=== PATIENT | female | born 1975 | race Caucasian/White ===

== ENCOUNTER → 2019-12-24 10:00 | Outpatient (CLI) | payer BC, SELFPAY ==
--- NOTE | ~2019-12-24 | DEXA_ITS ---
Bone Density Report Name: Sissy Maya Age: 44 Sex: Female Ethnicity: White Date of : 1975 Indication: postmenopausal; cancer; asthma or emphysema; hysterectomy; Referring Provider: PHYSICIAN NOT ON STAFF Study: Bone densitometry was performed. Exam Date: December 24, 2019 Accession number: [id number] Bone Density: Region BMD T-score Z-score Classification AP Spine (L1-L4) 1.019 -0.3 0.1 Normal Femoral Neck (Left) 0.830 -0.2 0.2 Normal Total Hip (Left) 0.892 -0.4 -0.1 Normal Femoral Neck (Right) 0.790 -0.5 -0.1 Normal Total Hip (Right) 0.850 -0.8 -0.5 Normal Total Hip Mean 0.871 -0.6 -0.3 Normal World Health Organization criteria for BMD impression classify patients as: Normal (T-score at or above -1.0), Osteopenia (T-score between -1.0 and -2.5), or Osteoporosis (T-score at or below -2.5). 10-year Fracture Risk: FRAX not reported because: All T-scores for Spine Total, Hip Total, Femoral Neck at or above -1.0 Treated for osteoporosis Clinical Information Provided by Patient: Is being treated for osteoporosis Has used the following medications: Vitamin D, Calcium Has the following medical conditions: Asthma or Emphysema, Cancer, Hysterectomy Patient maximum height was 70 Menopause Age: 42 Drinks caffeinated beverages Onset of menses at age 15 Number of children 2 Impression: The patient has normal bone mass. Discussion: It is important to ask patients whether they are taking their medications and to encourage continued and appropriate compliance with their osteoporosis therapies to reduce fracture risk. It is also important to review their risk factors and encourage appropriate calcium and vitamin D intakes, exercise, fall prevention and other lifestyle measures. Follow-Up: Consider a repeat BMD and Vertebral Fracture Assessment (VFA) exam in 2 years or sooner if medically necessary, to reassess this patient's status. Reported by: [facility] on 12/24/2019 2:46:00 PM. Reviewed, dictated and finalized at location [facility]ert [facility]
== END ==
DX: C50.419 Malignant neoplasm of upper-outer quadrant of unspecified female breast (principal); Z79.811 Long term (current) use of aromatase inhibitors
CPT/HCPCS: 77080

== ENCOUNTER → 2019-12-24 10:03 | Outpatient (CLI) | payer BC, SELFPAY ==
--- NOTE | ~2019-12-24 | XR_ITS ---
XR lumbar spine min 4V DATE: 12/24/2019 10:57 INDICATION: Chronic low back pain TECHNIQUE: AP, lateral, bilateral oblique and coned lateral lumbosacral views COMPARISON: None FINDINGS: Moderate osteopenia. The lumbar vertebrae are normally aligned, without fracture or bone destruction, spondylolysis or spo ndylolisthesis. The lumbar pedicles are intact. There is mild degenerative disease at L1-2, L2-3 and L5-S1 and moderate degenerative disc disease at L3-4. The sacroiliac joints are normal. IMPRESSION: Mild to moderate degenerative disc disease of the lumbar spine Moderate osteopenia Reviewed, dictated and finalized at location B.
== END ==
PROVIDERS: Visit Provider Chiropractor
DX: M51.36 Other intervertebral disc degeneration, lumbar region (principal); M85.88 Other specified disorders of bone density and structure, other site
CPT/HCPCS: 72110

== ENCOUNTER → 2020-09-30 07:42 | Outpatient (CLI) | payer BC, SELFPAY ==
--- NOTE | ~2020-09-30 | US_ITS ---
US right upper quadrant DATE: 09/30/2020 08:15 INDICATION: Elevated liver function tests. History of breast cancer. TECHNIQUE: Real-time imaging and Doppler analysis of the right upper quadrant COMPARISON: None FINDINGS: No hepatic or pancreatic space-occupying mass lesion is evident. Normal hepatopedal portal venous flow direction. No gallstones or gallbladder wall thickening. Negative sonographic Deleon's si gn. Common bile duct measures 3.3 mm. IMPRESSION: No significant abnormality Reviewed, dictated and finalized at Location A. Reviewed, dictated and finalized at location A. IMPRESSION: No significant abnormality
== END ==
DX: C50.419 Malignant neoplasm of upper-outer quadrant of unspecified female breast (principal); R79.89 Other specified abnormal findings of blood chemistry
CPT/HCPCS: 76705

== ENCOUNTER 2021-01-07 08:05 | Emergency (ER) | payer BC, SELFPAY ==
[2021-01-07 08:17] VITALS: BP 141/104; PULSE 85; RESP 18; TEMP 36.5; O2SAT 99
--- NOTE | 2021-01-07 08:28 | ED.ANIMALBIT ---
HPI - Animal Bite General Chief Complaint: Animal Bite Stated Complaint: Laceration on finger Time Seen by Provider: 01/07/21 08:30 Source: patient Mode of arrival: ambulatory Limitations: no limitations History of Present Illness HPI narrative: Sissy Maya is a 45 yo female with a PMH of breast cancer [facility] with a dog bite of the left index finger distal. Your pad is wide open and although it has been greater than 12 hours since the bite the area is going to have to be debrided in order to close it and will be closed with 2 loose sutures Related Data Home Medications Medication Instructions Recorded Confirmed letrozole 2.5 mg PO DAILY 01/07/21 01/07/21 paroxetine HCl 20 mg PO DAILY 01/07/21 01/07/21 Allergies Allergy/AdvReac Type Severity Reaction Status Date / Time No Known Allergies Allergy Verified 01/07/21 08:15 Review of Systems Review of Systems: CONSTITUTIONAL: Denies fever, chills, sweats. EYES: Denies visual changes, redness, discharge. ENT: Denies rhinorrhea, congestion, sore throat, otalgia. CARDIOVASCULAR: Denies chest pain, palpitations, edema. RESPIRATORY: Denies dyspnea, wheezing, cough GASTROINTESTINAL: Denies abdominal pain, nausea, vomiting, diarrhea. GENITOURINARY: Denies dysuria, hematuria, abnormal discharge SKIN: Denies rash or itching. 12-hour old dog bite to left index finger NEUROLOGIC: Denies numbness, or focal weakness. PSYCHIATRIC: Denies anxiety or depression. [facility] Past Medical History Medical History Breast cancer Family History Family History Father Depression Hypertension Patient's father is in good health, Onset Age: 70 Grandparent Asthma Family history of allergic disorder Family history of multiple sclerosis, Onset Age: 58 Mother Patient's mother is in good health, Onset Age: 66 Family history of allergic disorder Sibling Patient's brother is in good health, Onset Age: 39 Other Family history of malignant neoplasm of male breast Social History Social History Smoking status: Never smoker Alcohol intake: current Comments At time of signature, I agree with nursing past medical, surgical, social and family history. There is no relevant family history pertinent to the presenting complaint. Exam Narrative: GENERAL: This is a well-nourished, well-developed patient, in mild distress. HEAD: normocephalic, atraumatic. EYES: Sclera clear/white. Vision is grossly intact. EARS: External ears normal, auditory canals clear and without drainage, TMs normal without perforation. Hearing grossly intact. NOSE: External nose normal without nasal discharge, nares without redness, no rhinorrhea. THROAT: Mucous membranes moist, NECK: Neck supple, CARDIOVASCULAR: Regular rate and rhythm without murmurs, gallops, or rubs. RESPIRATORY: Clear to auscultation. Breath sounds equal bilaterally. No wheezes, rales, or rhonchi. GASTROINTESTINAL: Abdomen soft, , SKIN: warm, with left index finger distal pad eliptical 2 centimeter NEURO: awake, alert, and oriented to person, place and time. There were no obvious focal neurologic abnormalities. Steady gait EXTREMITIES: Normal range of motion. BACK: Nontender without deformity Course Course Emergency Course: Patient comes with a 12-hour old dog bite to the left index finger distal Area irrigated soaked debrided and closed loosely with 2 sutures Started on Augmentin Vital Signs Vital signs: Vital Signs Temperature 97.7 F 01/07/21 08:17 Pulse Rate 85 01/07/21 08:17 Respiratory Rate 18 01/07/21 08:17 Blood Pressure 141/104 H 01/07/21 08:17 Pulse Oximetry 99 01/07/21 08:17 Temperature 97.7 F 01/07/21 08:17 Pulse Rate 85 01/07/21 08:17 Respiratory Rate 18 01/07/21 08:17 Blood Pressure 141/104 H 01/07/21
[2021-01-07] MEDS: TETANUS,DIPHTHERIA,AC PERTUSSIS ADULT (0.5 ML) BOOSTRIX IM (08:48)
== END 2021-01-07 09:28 | disposition home or self-care (01) ==
PROVIDERS: Emergency Provider Nurse Practitioner; PCP Obstetrics & Gynecology Gynecology
DX: S61.211A Laceration without foreign body of left index finger without damage to nail, initial encounter (principal); W54.0XXA Bitten by dog, initial encounter; Z23 Encounter for immunization; Z85.3 Personal history of malignant neoplasm of breast
CPT/HCPCS: 12001; 90471; 90715; 99213; G0463

== ENCOUNTER 2021-05-10 02:23 | Day surgery (SDC) | payer BC, SELFPAY ==
[2021-04-28 08:26] VITALS: BMI 24.3
[2021-05-10 09:38] VITALS: BP 129/83; PULSE 70; RESP 18; TEMP 36.7; O2SAT 100; BMI 26.2
[2021-05-10 09:44] VITALS: BP 111/73; PULSE 73; RESP 25; O2SAT 92
--- NOTE | 2021-05-10 09:46 | WPDANESEPPF ---
Anes - Initial Pre Proc Eval Procedure: Operation Date: 05/10/21 11:00 Proposed Procedures p Screening Colonoscopy - Gurdeep Dozier MD Date/Time: 05/10/21 09:46 Surgeon: Gurdeep Dozier MD Pre Op Diagnosis: neoplasm screening Patient Data Age: 46 Gender: F Height: 1.78 m Weight: 77 kg Allergies Allergy/AdvReac Type Severity Reaction Status Date / Time No Known Allergies Allergy Verified 05/10/21 09:44 Home Medications Medication Instructions Recorded Confirmed Type letrozole 2.5 mg PO DAILY 01/07/21 05/10/21 History Patient hx anesthesia problems: none Family hx anesthesia problems: none Results Review: All pre-operative results and documents have been reviewed as part of the pre-operative evaluation. [facility] Past Medical History Medical History (Updated 05/10/21 @ 09:46 by Sanchez Flores MD) Asthma Breast cancer Surgical History Surgical History (Updated 05/10/21 @ 09:46 by Sanchez Flores MD) History of mastectomy Bilateral Family History Family History Father Depression Hypertension Patient's father is in good health, Onset Age: 70 Grandparent Asthma Family history of allergic disorder Family history of multiple sclerosis, Onset Age: 58 Mother Patient's mother is in good health, Onset Age: 66 Family history of allergic disorder Sibling Patient's brother is in good health, Onset Age: 39 Other Family history of malignant neoplasm of male breast Social History Social History Smoking status: Never smoker Alcohol intake: current Drinks per week: 5 Living arrangements: with family Spiritual care concerns: No Anes - Eval Final PreProcedure Day of Procedure 05/10/21 09:46 Patient weight: normal Heart: regular rate and rhythm Lungs: clear to auscultation Airway: Mallampati scale class 1 Neurological: alert and oriented Last oral intake: >/= 8 hours ASA classification: II Emergent: no Anesthetic plan: proceed Anesthesia type and monitoring: general GIVS and standard monitoring Results Review: All pre-operative results and documents have been reviewed as part of the pre-operative evaluation. Informed Consent: The patient's anesthetic plan and its attendant risks and benefits were discussed with the patient/family/POA. Questions were solicited and answers provided to the satisfaction of the patient/family/POA.
[2021-05-10] MEDS: LACTATED RINGERS 1,000 ML 150 ML IV CONT (09:52)
--- NOTE | 2021-05-10 10:17 | PM.HPGS ---
History of Present Illness History of Present Illness Consent: Risks, benefits, and alternatives have been discussed and questions answered. Patient agrees to proceed with procedure. Chief complaint: neoplasm screening Narrative: Sissy Maya is a 46 year old female here for first screening colonoscopy Review of Systems Constitutional: Constitutional: Denies headache(s) and Denies weakness Eyes: Eyes: Denies blurry vision ENT: Reports Normal hearing present, Denies headache(s) and Denies neck pain Cardiovascular: Cardiovascular: Denies chest pain and Denies dyspnea Respiratory: Respiratory: Denies dyspnea Gastrointestinal: Gastrointestinal: Reports no additional gastrointestinal complaints Genitourinary: Genitourinary: Denies dysuria Musculoskeletal: Musculoskeletal: Denies neck pain Integumentary/Breasts: Skin/Breast: Denies dry skin Neurologic: Reports Normal hearing present, Denies headache(s) and Denies weakness Psychiatric: Psychiatric: Denies anxiety Endocrine: Endocrine: Denies change in body appearance Hematologic/Lymphatic: Hematologic/Lymphatic: Denies easy bleeding Allergic/Immunologic: Allergic/Immunologic: Denies urticaria PMF Past Medical History Medical History (Updated 05/10/21 @ 10:18 by Gurdeep Dozier MD) Asthma Breast cancer Colon cancer screening Surgical History Surgical History (Updated 05/10/21 @ 09:46 by Sanchez Flores MD) History of mastectomy Bilateral Family History Family History Father Depression Hypertension Patient's father is in good health, Onset Age: 70 Grandparent Asthma Family history of allergic disorder Family history of multiple sclerosis, Onset Age: 58 Mother Patient's mother is in good health, Onset Age: 66 Family history of allergic disorder Sibling Patient's brother is in good health, Onset Age: 39 Other Family history of malignant neoplasm of male breast Social History Social History Smoking status: Never smoker Alcohol intake: current Drinks per week: 5 Living arrangements: with family Spiritual care concerns: No Meds Home Medications and Allergies Home Medications Medication Instructions Recorded Confirmed Type letrozole 2.5 mg PO DAILY 01/07/21 05/10/21 History Allergies Allergy/AdvReac Type Severity Reaction Status Date / Time No Known Allergies Allergy Verified 05/10/21 09:44 Vital Signs Vital Signs - 24 hr 05/10/21 09:38 Temperature 98.1 F Pulse Rate 70 Respiratory Rate 18 Blood Pressure 129/83 Pulse Oximetry 100 Exam Const: General: comfortable and no acute distress HENMT: General nose exam: Normal nares present Eyes: General: appearance normal, both eyes and all related structures Neck: Neck: no JVD Resp: Auscultation: clear to auscultation bilaterally Cardio: Rate: regular rate Rhythm: regular rhythm GI: Inspection: non-distended GI Palp: Yes Soft to palpation Skin: General skin exam: normal color Neuro: General: gait normal Speech: normal speech Extrem: General: normal to inspection Psych: Mental Status: mental status grossly normal Assessment and Plan Assessment and plan (1) Colon cancer screening: Code(s): Z12.11 - Encounter for screening for malignant neoplasm of colon Status: Acute Assessment and Plan: colonoscopy
[2021-05-10 10:54] VITALS: BP 113/69; PULSE 69; RESP 26; O2SAT 96
[2021-05-10 11:04] VITALS: BP 112/85; PULSE 61; RESP 18; O2SAT 98
== END 2021-05-10 11:22 | disposition home or self-care (01) ==
PROVIDERS: PCP Internal Medicine Medical Oncology; Visit Provider Internal Medicine Gastroenterology
PROC: 0DJD8ZZ Inspection of Lower Intestinal Tract, Via Natural or Artificial Opening Endoscopic (ICD-10-PCS; CPT 45378; principal; 2021-05-10 11:00)
DX: Z12.11 Encounter for screening for malignant neoplasm of colon (principal); K57.30 Diverticulosis of large intestine without perforation or abscess without bleeding; K64.8 Other hemorrhoids; D12.2 Benign neoplasm of ascending colon; Z85.3 Personal history of malignant neoplasm of breast; Z79.811 Long term (current) use of aromatase inhibitors
CPT/HCPCS: 45380; 88305; J2704; J7120

== ENCOUNTER 2023-03-24 11:17 | Emergency (ER) | payer BC, SELFPAY ==
[2023-03-24 11:53] VITALS: BP 140/72; PULSE 87; RESP 20; TEMP 36.8; O2SAT 99
--- NOTE | 2023-03-24 11:56 | ED.BACK ---
HPI - Back Pain/Injury General Chief Complaint: Back Pain/Injury Stated Complaint: back pain Time Seen by Provider: 03/24/23 11:55 Source: patient Mode of arrival: ambulatory Limitations: no limitations History of Present Illness HPI Narrative: Sissy is a 48-year-old female patient presenting to the clinic today with complaints of low back pain x3 days. She reports that every year her back goes out and she sees her chiropractor and they realign/adjust her and her pain improves however her chiropractor is out of town due to the holidays and she is not able to get in to see anyone else. Reports pain currently a 8/10 to the mid low back. Denies pain radiating down her legs loss of bowel bladder, or saddle anesthesia. Is having pain with walking however denies having a unsteady gait. Related Data Home Medications Medication Instructions Recorded Confirmed letrozole 2.5 mg tablet 2.5 mg PO DAILY 01/07/21 03/24/23 calcium carbonate 600 mg calcium 600 mg PO BID 09/28/22 03/24/23 (1,500 mg) tablet (Calcium) Allergies Allergy/AdvReac Type Severity Reaction Status Date / Time No Known Allergies Allergy Verified 03/24/23 11:52 Review of Systems Review of Systems: Pertinent positives per HPI. Patient denies any fever, chills, rash, headache, visual changes, dizziness, cough, runny nose, sore throat, shortness of breath, chest pain, palpitations, nausea, vomiting, diarrhea, constipation, abdominal pain, or any urinary issues. [facility] Past Medical History Medical History (Updated 03/24/23 @ 11:57 by Chai Fitzpatrick APRN) Asthma Breast cancer Colon cancer screening Surgical History Surgical History History of mastectomy Bilateral Family History Family History Father Depression Hypertension Patient's father is in good health, Onset Age: 70 Grandparent Asthma Family history of allergic disorder Family history of multiple sclerosis, Onset Age: 58 Mother Patient's mother is in good health, Onset Age: 66 Family history of allergic disorder Sibling Patient's brother is in good health, Onset Age: 39 Other Family history of malignant neoplasm of male breast Social History Social History Smoking status: Never smoker Alcohol intake: current Drinks per week: 5 Lack of Transportation: No Lack of Food: Never True Current Housing: I Have Housing Concerned About Future Housing: No Difficulty Paying Gas/Electric Bills: No Difficulty Paying for Meds: No Currently Unemployed: No Education: Master's Degree or Higher Difficulty w/ Childcare or Family Care: No Living arrangements: with family Spiritual care concerns: No Comments At the time of my signature, I reviewed and agree with the nursing past medical, surgical, social, and family history. There is no relevant family history pertinent to the patient complaint. Exam Narrative: General: Well-developed, well nourished, in no apparent distress Head: Normocephalic, atraumatic. Cardio: Regular rate and rhythm, s1 and s2 normal, no murmur appreciated. Resp: Clear to auscultation bilaterally, no rhonchi, rales, wheezing or rubs. Musculoskeletal: No deformity, tender to palpation over the mid/low back, pain with straight leg test at 40? bilaterally, negative foot drop, flexes 2+, limited range of motion due to pain with flexion extension of the back, muscle strength strong and equal, peripheral pulse strong, no edema, no cyanosis, normal gait and station Course Course Emergency Course: Portions of this record may have been created with voice recognition software. Level of Care: Express Care Visit Vital Signs Vital signs: Vital Signs Temperature 36.8 C 03/24/23 11:53 Pulse Rate 87 03/24/23 11:53 Respiratory Rate 20 03/24/23
[2023-03-24] MEDS: KETOROLAC (*BKC) 60 MG/2 ML VIAL IM (12:07)
== END 2023-03-24 12:38 | disposition home or self-care (01) ==
PROVIDERS: Emergency Provider Nurse Practitioner Family; PCP Internal Medicine
DX: M54.50 Low back pain, unspecified (principal); Z85.3 Personal history of malignant neoplasm of breast
CPT/HCPCS: 96372; 99213; G0463; J1885

== ENCOUNTER → 2023-04-18 08:34 | Outpatient (CLI) | payer BC, SELFPAY ==
--- NOTE | ~2023-04-18 | MR_ITS ---
MRI of the lumbar spine Clinical History: Back pain Technique: Axial T2-weighted images, and sagittal T1-weighted, T2-weighted, and T2 fat-sat images wer e acquired. Findings: There is no fracture or subluxation of lumbar spine. Vertebral bodies maintain normal heigh t and alignment. No suspicious bone marrow signal abnormality seen. At L1-L2, there is no disc bulge or herniation. No central canal stenosis or neural foraminal narrowi ng. At L2-L3, there is minimal disc bulge with minimal facet arthropathy. No central canal stenosis or ne ural foraminal narrowing. At L3-L4, there is mild disc bulge with minimal facet arthropathy. No central canal stenosis or neura l foraminal narrowing. At L4-L5, there is minimal disc bulge with mild facet joint hypertrophy. No central canal stenosis or neural foraminal narrowing. At L5-S1, there is minimal disc bulge and minimal facet arthropathy. No central canal stenosis or moraima ral foraminal narrowing. Paravertebral soft tissues are unremarkable. Impression: Mild degenerative spondylosis, as above. Reviewed, dictated and finalized at location M. [employer] Impression: Mild degenerative spondylosis, as above.
== END ==
PROVIDERS: PCP Internal Medicine; Visit Provider Chiropractor Rehabilitation
DX: M47.26 Other spondylosis with radiculopathy, lumbar region (principal)
CPT/HCPCS: 72148